=== PATIENT | male | born 1940 | race Caucasian/White ===

== ENCOUNTER 2020-10-05 00:22 | Day surgery (SDC) | payer OTHER | END 2020-10-05 22:56 | disposition home or self-care (01) | LOC: WOUND 00:22 | DX: N30.41 Irradiation cystitis with hematuria (principal); L59.8 Other specified disorders of the skin and subcutaneous tissue related to radiation; I10 Essential (primary) hypertension; Y84.2 Radiological procedure and radiotherapy as the cause of abnormal reaction of the patient, or of later complication, without mention of misadventure at the time of the procedure; Z85.46 Personal history of malignant neoplasm of prostate; Z79.890 Hormone replacement therapy | CPT/HCPCS: G0463 ==

== ENCOUNTER 2020-10-11 00:14 | Day surgery (SDC) | payer OTHER | END 2020-10-11 23:05 | disposition home or self-care (01) | LOC: HBO 00:14 | DX: L59.8 Other specified disorders of the skin and subcutaneous tissue related to radiation (principal); R31.9 Hematuria, unspecified; Y84.2 Radiological procedure and radiotherapy as the cause of abnormal reaction of the patient, or of later complication, without mention of misadventure at the time of the procedure; Z87.448 Personal history of other diseases of urinary system; Z92.3 Personal history of irradiation; Z85.51 Personal history of malignant neoplasm of bladder | CPT/HCPCS: G0277 ==

== ENCOUNTER 2020-10-12 00:29 | Day surgery (SDC) | payer OTHER | END 2020-10-12 22:46 | disposition home or self-care (01) | LOC: HBO | DX: L59.8 Other specified disorders of the skin and subcutaneous tissue related to radiation (principal); R31.9 Hematuria, unspecified; Z87.448 Personal history of other diseases of urinary system; Z92.3 Personal history of irradiation; Z85.51 Personal history of malignant neoplasm of bladder; Z53.8 Procedure and treatment not carried out for other reasons; Y84.2 Radiological procedure and radiotherapy as the cause of abnormal reaction of the patient, or of later complication, without mention of misadventure at the time of the procedure | CPT/HCPCS: G0277 ==

== ENCOUNTER 2020-10-13 00:37 | Day surgery (SDC) | payer OTHER | END 2020-10-13 22:45 | disposition home or self-care (01) | LOC: HBO | DX: L59.8 Other specified disorders of the skin and subcutaneous tissue related to radiation (principal); R31.9 Hematuria, unspecified; Z87.448 Personal history of other diseases of urinary system; Z92.3 Personal history of irradiation; Z85.51 Personal history of malignant neoplasm of bladder | CPT/HCPCS: G0277 ==

== ENCOUNTER 2020-10-14 00:17 | Day surgery (SDC) | payer OTHER | END 2020-10-14 23:00 | disposition home or self-care (01) | LOC: HBO 00:17 | DX: L59.8 Other specified disorders of the skin and subcutaneous tissue related to radiation (principal); R31.9 Hematuria, unspecified; Z87.448 Personal history of other diseases of urinary system; Z92.3 Personal history of irradiation; Z85.51 Personal history of malignant neoplasm of bladder; Y84.2 Radiological procedure and radiotherapy as the cause of abnormal reaction of the patient, or of later complication, without mention of misadventure at the time of the procedure | CPT/HCPCS: G0277 ==

== ENCOUNTER 2020-10-15 00:35 | Day surgery (SDC) | payer OTHER | END 2020-10-15 22:43 | disposition home or self-care (01) | LOC: HBO 00:35 | DX: L59.8 Other specified disorders of the skin and subcutaneous tissue related to radiation (principal); R31.9 Hematuria, unspecified; Z87.448 Personal history of other diseases of urinary system; Z92.3 Personal history of irradiation; Z85.51 Personal history of malignant neoplasm of bladder | CPT/HCPCS: G0277 ==

== ENCOUNTER 2020-10-18 00:42 | Day surgery (SDC) | payer OTHER | END 2020-10-18 23:01 | disposition home or self-care (01) | LOC: HBO 00:42 | DX: L59.8 Other specified disorders of the skin and subcutaneous tissue related to radiation (principal); R31.9 Hematuria, unspecified; Z87.448 Personal history of other diseases of urinary system; Z92.3 Personal history of irradiation; Z85.51 Personal history of malignant neoplasm of bladder; Y84.2 Radiological procedure and radiotherapy as the cause of abnormal reaction of the patient, or of later complication, without mention of misadventure at the time of the procedure | CPT/HCPCS: G0277 ==

== ENCOUNTER 2020-10-20 00:19 | Day surgery (SDC) | payer OTHER | END 2020-10-20 22:41 | disposition home or self-care (01) | LOC: HBO 00:19 | DX: L59.8 Other specified disorders of the skin and subcutaneous tissue related to radiation (principal); R31.9 Hematuria, unspecified; Z87.448 Personal history of other diseases of urinary system; Z92.3 Personal history of irradiation; Z85.51 Personal history of malignant neoplasm of bladder | CPT/HCPCS: G0277 ==

== ENCOUNTER 2020-10-21 00:11 | Day surgery (SDC) | payer OTHER | END 2020-10-21 23:36 | disposition home or self-care (01) | LOC: HBO 00:11 | DX: L59.8 Other specified disorders of the skin and subcutaneous tissue related to radiation (principal); R31.9 Hematuria, unspecified; Y84.2 Radiological procedure and radiotherapy as the cause of abnormal reaction of the patient, or of later complication, without mention of misadventure at the time of the procedure; Z87.448 Personal history of other diseases of urinary system; Z85.51 Personal history of malignant neoplasm of bladder | CPT/HCPCS: G0277 ==

== ENCOUNTER 2020-10-22 02:00 | Day surgery (SDC) | payer OTHER | END 2020-10-22 22:46 | disposition home or self-care (01) | LOC: HBO 02:00 | DX: L59.8 Other specified disorders of the skin and subcutaneous tissue related to radiation (principal); R31.9 Hematuria, unspecified; Z87.448 Personal history of other diseases of urinary system; Z92.3 Personal history of irradiation; Z85.51 Personal history of malignant neoplasm of bladder | CPT/HCPCS: G0463 ==

== ENCOUNTER 2020-10-25 08:00 | Day surgery (SDC) | payer OTHER | END 2020-10-25 22:58 | disposition home or self-care (01) | LOC: HBO 08:00 | DX: L59.8 Other specified disorders of the skin and subcutaneous tissue related to radiation (principal); R31.9 Hematuria, unspecified; Z87.448 Personal history of other diseases of urinary system; Z92.3 Personal history of irradiation; Z85.51 Personal history of malignant neoplasm of bladder | CPT/HCPCS: G0277 ==

== ENCOUNTER 2020-10-26 00:51 | Day surgery (SDC) | payer OTHER | END 2020-10-26 23:32 | disposition home or self-care (01) | LOC: HBO 00:51 | DX: L59.8 Other specified disorders of the skin and subcutaneous tissue related to radiation (principal); R31.9 Hematuria, unspecified; Z87.448 Personal history of other diseases of urinary system; Z92.3 Personal history of irradiation; Z85.51 Personal history of malignant neoplasm of bladder | CPT/HCPCS: G0277 ==

== ENCOUNTER 2020-10-27 01:26 | Day surgery (SDC) | payer OTHER | END 2020-10-27 23:02 | disposition home or self-care (01) | LOC: HBO 01:26 | DX: L59.8 Other specified disorders of the skin and subcutaneous tissue related to radiation (principal); R31.9 Hematuria, unspecified; Z87.448 Personal history of other diseases of urinary system; Z92.3 Personal history of irradiation; Z85.51 Personal history of malignant neoplasm of bladder | CPT/HCPCS: G0277 ==

== ENCOUNTER 2020-10-28 00:22 | Day surgery (SDC) | payer OTHER | END 2020-10-28 22:54 | disposition home or self-care (01) | LOC: HBO 00:22 | DX: L59.8 Other specified disorders of the skin and subcutaneous tissue related to radiation (principal); R31.9 Hematuria, unspecified; Z87.448 Personal history of other diseases of urinary system; Z92.3 Personal history of irradiation; Z85.51 Personal history of malignant neoplasm of bladder | CPT/HCPCS: G0277 ==

== ENCOUNTER 2020-10-29 00:36 | Day surgery (SDC) | payer OTHER | END 2020-10-29 22:51 | disposition home or self-care (01) | LOC: HBO 00:36 | DX: L59.8 Other specified disorders of the skin and subcutaneous tissue related to radiation (principal); R31.9 Hematuria, unspecified; Z87.448 Personal history of other diseases of urinary system; Z92.3 Personal history of irradiation; Z85.51 Personal history of malignant neoplasm of bladder; Y84.2 Radiological procedure and radiotherapy as the cause of abnormal reaction of the patient, or of later complication, without mention of misadventure at the time of the procedure | CPT/HCPCS: G0277 ==

== ENCOUNTER 2020-11-01 00:23 | Day surgery (SDC) | payer OTHER | END 2020-11-01 22:58 | disposition home or self-care (01) | LOC: HBO 00:23 | DX: L59.8 Other specified disorders of the skin and subcutaneous tissue related to radiation (principal); R31.9 Hematuria, unspecified; Z87.448 Personal history of other diseases of urinary system; Z92.3 Personal history of irradiation; Z85.51 Personal history of malignant neoplasm of bladder | CPT/HCPCS: G0277 ==

== ENCOUNTER 2020-11-02 00:58 | Day surgery (SDC) | payer OTHER | END 2020-11-02 22:56 | disposition home or self-care (01) | LOC: HBO 00:58 | DX: L59.8 Other specified disorders of the skin and subcutaneous tissue related to radiation (principal); R31.9 Hematuria, unspecified; Z87.448 Personal history of other diseases of urinary system; Z92.3 Personal history of irradiation; Z85.51 Personal history of malignant neoplasm of bladder; Y84.2 Radiological procedure and radiotherapy as the cause of abnormal reaction of the patient, or of later complication, without mention of misadventure at the time of the procedure | CPT/HCPCS: G0277 ==

== ENCOUNTER 2020-11-03 00:34 | Day surgery (SDC) | payer OTHER | END 2020-11-03 22:45 | disposition home or self-care (01) | LOC: HBO 00:34 | DX: L59.8 Other specified disorders of the skin and subcutaneous tissue related to radiation (principal); R31.9 Hematuria, unspecified; Z87.448 Personal history of other diseases of urinary system; Z92.3 Personal history of irradiation; Z85.51 Personal history of malignant neoplasm of bladder; Y84.2 Radiological procedure and radiotherapy as the cause of abnormal reaction of the patient, or of later complication, without mention of misadventure at the time of the procedure | CPT/HCPCS: G0277 ==

== ENCOUNTER 2020-11-04 00:29 | Day surgery (SDC) | payer OTHER | END 2020-11-04 23:01 | disposition home or self-care (01) | LOC: HBO 00:29 | DX: L59.8 Other specified disorders of the skin and subcutaneous tissue related to radiation (principal); R31.9 Hematuria, unspecified; Z87.448 Personal history of other diseases of urinary system; Z92.3 Personal history of irradiation; Z85.51 Personal history of malignant neoplasm of bladder | CPT/HCPCS: G0277 ==

== ENCOUNTER 2020-11-05 00:38 | Day surgery (SDC) | payer OTHER | END 2020-11-05 23:00 | disposition home or self-care (01) | LOC: HBO 00:38 | DX: L59.8 Other specified disorders of the skin and subcutaneous tissue related to radiation (principal); R31.9 Hematuria, unspecified; Z87.448 Personal history of other diseases of urinary system; Z92.3 Personal history of irradiation; Z85.51 Personal history of malignant neoplasm of bladder | CPT/HCPCS: G0277 ==

== ENCOUNTER 2020-11-08 00:49 | Day surgery (SDC) | payer OTHER | END 2020-11-08 22:55 | disposition home or self-care (01) | LOC: HBO 00:49 | DX: L59.8 Other specified disorders of the skin and subcutaneous tissue related to radiation (principal); R31.9 Hematuria, unspecified; Z87.448 Personal history of other diseases of urinary system; Z92.3 Personal history of irradiation; Z85.51 Personal history of malignant neoplasm of bladder | CPT/HCPCS: G0277 ==

== ENCOUNTER 2020-11-09 01:20 | Day surgery (SDC) | payer OTHER | END 2020-11-09 23:18 | disposition home or self-care (01) | LOC: HBO 01:20 | DX: L59.8 Other specified disorders of the skin and subcutaneous tissue related to radiation (principal); R31.9 Hematuria, unspecified; Z87.448 Personal history of other diseases of urinary system; Z92.3 Personal history of irradiation; Z85.51 Personal history of malignant neoplasm of bladder | CPT/HCPCS: G0277 ==

== ENCOUNTER 2020-11-10 00:11 | Day surgery (SDC) | payer OTHER | END 2020-11-10 22:55 | disposition home or self-care (01) | LOC: HBO 00:11 | DX: L59.8 Other specified disorders of the skin and subcutaneous tissue related to radiation (principal); R31.9 Hematuria, unspecified; Z87.448 Personal history of other diseases of urinary system; Z92.3 Personal history of irradiation; Z85.51 Personal history of malignant neoplasm of bladder | CPT/HCPCS: G0277 ==

== ENCOUNTER 2020-11-10 00:19 | Day surgery (SDC) | payer OTHER | END 2020-11-10 22:55 | disposition home or self-care (01) | LOC: WOUND 00:19 | DX: L59.8 Other specified disorders of the skin and subcutaneous tissue related to radiation (principal); R31.9 Hematuria, unspecified; Z87.448 Personal history of other diseases of urinary system; Z92.3 Personal history of irradiation; Z85.51 Personal history of malignant neoplasm of bladder | CPT/HCPCS: G0463 ==

== ENCOUNTER 2020-11-11 00:14 | Day surgery (SDC) | payer OTHER | END 2020-11-11 22:42 | disposition home or self-care (01) | LOC: HBO 00:14 | DX: L59.8 Other specified disorders of the skin and subcutaneous tissue related to radiation (principal); R31.9 Hematuria, unspecified; Z87.448 Personal history of other diseases of urinary system; Z92.3 Personal history of irradiation; Z85.51 Personal history of malignant neoplasm of bladder | CPT/HCPCS: G0277 ==

== ENCOUNTER 2020-11-12 00:53 | Day surgery (SDC) | payer OTHER | END 2020-11-12 23:11 | disposition home or self-care (01) | LOC: HBO 00:53 | DX: L59.8 Other specified disorders of the skin and subcutaneous tissue related to radiation (principal); R31.9 Hematuria, unspecified; Z87.448 Personal history of other diseases of urinary system; Z92.3 Personal history of irradiation; Z85.51 Personal history of malignant neoplasm of bladder | CPT/HCPCS: G0277 ==

== ENCOUNTER 2020-11-15 00:27 | Day surgery (SDC) | payer OTHER | END 2020-11-15 22:58 | disposition home or self-care (01) | LOC: HBO 00:27 | DX: L59.8 Other specified disorders of the skin and subcutaneous tissue related to radiation (principal); R31.9 Hematuria, unspecified; Y84.2 Radiological procedure and radiotherapy as the cause of abnormal reaction of the patient, or of later complication, without mention of misadventure at the time of the procedure; Z87.448 Personal history of other diseases of urinary system; Z92.3 Personal history of irradiation; Z85.51 Personal history of malignant neoplasm of bladder | CPT/HCPCS: G0277 ==

== ENCOUNTER 2020-11-16 00:10 | Day surgery (SDC) | payer OTHER | END 2020-11-16 22:58 | disposition home or self-care (01) | LOC: HBO 00:10 | DX: L59.8 Other specified disorders of the skin and subcutaneous tissue related to radiation (principal); R31.9 Hematuria, unspecified; Z87.448 Personal history of other diseases of urinary system; Z92.3 Personal history of irradiation; Z85.51 Personal history of malignant neoplasm of bladder | CPT/HCPCS: G0277 ==

== ENCOUNTER 2020-11-17 00:26 | Day surgery (SDC) | payer OTHER | END 2020-11-17 22:47 | disposition home or self-care (01) | LOC: HBO 00:26 | DX: L59.8 Other specified disorders of the skin and subcutaneous tissue related to radiation (principal); R31.9 Hematuria, unspecified; Y84.2 Radiological procedure and radiotherapy as the cause of abnormal reaction of the patient, or of later complication, without mention of misadventure at the time of the procedure; Z87.448 Personal history of other diseases of urinary system; Z85.51 Personal history of malignant neoplasm of bladder | CPT/HCPCS: G0277 ==

== ENCOUNTER 2020-11-18 00:32 | Day surgery (SDC) | payer OTHER | END 2020-11-18 23:23 | disposition home or self-care (01) | LOC: HBO 00:32 | DX: L59.8 Other specified disorders of the skin and subcutaneous tissue related to radiation (principal); R31.9 Hematuria, unspecified; Z87.448 Personal history of other diseases of urinary system; Z92.3 Personal history of irradiation; Z85.51 Personal history of malignant neoplasm of bladder; Y84.2 Radiological procedure and radiotherapy as the cause of abnormal reaction of the patient, or of later complication, without mention of misadventure at the time of the procedure | CPT/HCPCS: G0277 ==

== ENCOUNTER 2020-11-19 00:48 | Day surgery (SDC) | payer OTHER | END 2020-11-19 23:27 | disposition home or self-care (01) | LOC: HBO 00:48 | DX: L59.8 Other specified disorders of the skin and subcutaneous tissue related to radiation (principal); R31.9 Hematuria, unspecified; Z87.448 Personal history of other diseases of urinary system; Z92.3 Personal history of irradiation; Z85.51 Personal history of malignant neoplasm of bladder; Y84.2 Radiological procedure and radiotherapy as the cause of abnormal reaction of the patient, or of later complication, without mention of misadventure at the time of the procedure | CPT/HCPCS: G0277 ==

== ENCOUNTER 2020-11-22 00:16 | Day surgery (SDC) | payer OTHER | END 2020-11-22 23:12 | disposition home or self-care (01) | LOC: HBO 00:16 | DX: L59.8 Other specified disorders of the skin and subcutaneous tissue related to radiation (principal); R31.9 Hematuria, unspecified; Z87.448 Personal history of other diseases of urinary system; Z92.3 Personal history of irradiation; Z85.51 Personal history of malignant neoplasm of bladder | CPT/HCPCS: G0277 ==

== ENCOUNTER 2020-11-24 01:14 | Day surgery (SDC) | payer OTHER | END 2020-11-24 23:22 | disposition home or self-care (01) | LOC: HBO 01:14 | DX: L59.8 Other specified disorders of the skin and subcutaneous tissue related to radiation (principal); R31.9 Hematuria, unspecified; Z87.448 Personal history of other diseases of urinary system; Z92.3 Personal history of irradiation; Z85.51 Personal history of malignant neoplasm of bladder | CPT/HCPCS: G0277 ==

== ENCOUNTER 2020-11-29 00:20 | Day surgery (SDC) | payer OTHER | END 2020-11-29 23:09 | disposition home or self-care (01) | LOC: HBO 00:20 | DX: L59.8 Other specified disorders of the skin and subcutaneous tissue related to radiation (principal); R31.9 Hematuria, unspecified; Z87.448 Personal history of other diseases of urinary system; Z92.3 Personal history of irradiation; Z85.51 Personal history of malignant neoplasm of bladder | CPT/HCPCS: G0277 ==

== ENCOUNTER 2020-11-30 00:42 | Day surgery (SDC) | payer OTHER | END 2020-11-30 22:59 | disposition home or self-care (01) | LOC: HBO 00:42 | DX: L59.8 Other specified disorders of the skin and subcutaneous tissue related to radiation (principal); R31.9 Hematuria, unspecified; Z87.448 Personal history of other diseases of urinary system; Z92.3 Personal history of irradiation; Z85.51 Personal history of malignant neoplasm of bladder | CPT/HCPCS: G0277 ==

== ENCOUNTER 2020-12-02 01:55 | Day surgery (SDC) | payer OTHER | END 2020-12-02 23:14 | disposition home or self-care (01) | LOC: HBO 01:55 | DX: L59.8 Other specified disorders of the skin and subcutaneous tissue related to radiation (principal); R31.9 Hematuria, unspecified; Z87.448 Personal history of other diseases of urinary system; Z92.3 Personal history of irradiation; Z85.51 Personal history of malignant neoplasm of bladder | CPT/HCPCS: G0277 ==

== ENCOUNTER 2020-12-03 02:08 | Day surgery (SDC) | payer OTHER | END 2020-12-03 23:11 | disposition home or self-care (01) | LOC: HBO 02:08 | DX: L59.8 Other specified disorders of the skin and subcutaneous tissue related to radiation (principal); R31.9 Hematuria, unspecified; Z87.448 Personal history of other diseases of urinary system; Z92.3 Personal history of irradiation; Z85.51 Personal history of malignant neoplasm of bladder | CPT/HCPCS: G0277 ==

== ENCOUNTER 2020-12-06 00:06 | Day surgery (SDC) | payer OTHER | END 2020-12-06 23:09 | disposition home or self-care (01) | LOC: HBO 00:06 | DX: L59.8 Other specified disorders of the skin and subcutaneous tissue related to radiation (principal); R31.9 Hematuria, unspecified; Z87.448 Personal history of other diseases of urinary system; Z92.3 Personal history of irradiation; Z85.51 Personal history of malignant neoplasm of bladder | CPT/HCPCS: G0277 ==

== ENCOUNTER 2020-12-07 00:18 | Day surgery (SDC) | payer OTHER | END 2020-12-07 23:46 | disposition home or self-care (01) | LOC: HBO 00:18 | DX: L59.8 Other specified disorders of the skin and subcutaneous tissue related to radiation (principal); R31.9 Hematuria, unspecified; Z87.448 Personal history of other diseases of urinary system; Z92.3 Personal history of irradiation; Z85.51 Personal history of malignant neoplasm of bladder | CPT/HCPCS: G0277 ==

== ENCOUNTER 2020-12-07 00:33 | Day surgery (SDC) | payer OTHER | END 2020-12-07 23:46 | disposition home or self-care (01) | LOC: WOUND 00:33 | DX: L59.8 Other specified disorders of the skin and subcutaneous tissue related to radiation (principal); R31.9 Hematuria, unspecified; Z87.448 Personal history of other diseases of urinary system; Z92.3 Personal history of irradiation; Z85.51 Personal history of malignant neoplasm of bladder | CPT/HCPCS: G0463 ==